=== PATIENT | male | born 1965 | race African-American/Black ===

== ENCOUNTER 2016-08-01 20:51 | Emergency (ER) | payer OTHER ==
[~2016-08-01] VITALS: Ht 188 cm; Wt 122.7 kg
[2016-08-01] MEDS ORDERED: LISI-662 PO (20:56)
[2016-08-01] MEDS ORDERED: HYDR25TA PO (20:56)
[2016-08-01] MEDS ORDERED: MULT-1192 PO (20:56)
[2016-08-01] MEDS ORDERED: PRAV20TA4 PO (20:56)
[2016-08-01 21:55] LABS: APPEARANCE,URINE CLEAR (CLEAR); GLUCOSE, URINE (UA) NEGATIVE (NEGATIVE); KETONES,URINE NEGATIVE (NEGATIVE); LEUKOCYTE ESTERASE ,URINE NEGATIVE (NEGATIVE); OCCULT BLOOD,URINE NEGATIVE (NEGATIVE); PROTEIN,URINE NEGATIVE (NEGATIVE)
[2016-08-01 22:01] LABS: RBC,URINE 0-2 /HPF (0-2); WBC,URINE 0-2 /HPF (0-5)
[2016-08-01 22:44] VITALS: BP 131/91
[2016-08-01] MEDS ORDERED: CIPROFLOXACIN HCL 250 MG TABLET PO ONE (23:00)
== END 2016-08-01 23:09 | disposition home or self-care (01) ==
LOC: EMS 20:55
DX: N45.1 Epididymitis (principal); I10 Essential (primary) hypertension; E78.00 Pure hypercholesterolemia, unspecified
CPT/HCPCS: 76870; 99285